=== PATIENT | female | born 1960 | race Caucasian/White ===

== ENCOUNTER 2017-08-19 18:57 | Emergency (ER) | payer OTHER | END 2017-08-19 20:41 | disposition home or self-care (01) | LOC: FTE 18:57 | DX: H92.01 Otalgia, right ear (principal) | CPT/HCPCS: 99283; Z7502 ==

== ENCOUNTER 2017-11-12 12:30 | Emergency (ER) | payer OTHER ==
[2017-11-12 14:08] LABS: ANION GAP 12 (8-16); BLOOD UREA NITROGEN 10 mg/dl (7-20); CALCIUM 9.4 mg/dl (8.4-10.2); CARBON DIOXIDE 28 mmol/L (21-31); CHLORIDE 105 mmol/L (97-110); CREATININE 0.48 mg/dl (0.44-1.00); GLUCOSE 117 mg/dl (70-220); POTASSIUM 4.2 mmol/L (3.5-5.1); SODIUM 141 mmol/L (135-144)
[2017-11-12] MEDS: SOD CHLORIDE 0.9% 100 ML (15:18)
[2017-11-12] MEDS: IOHEXOL 100 ML (15:18)
== END 2017-11-12 17:03 | disposition home or self-care (01) ==
LOC: E/R 12:30
DX: H93.12 Tinnitus, left ear (principal); R07.9 Chest pain, unspecified
CPT/HCPCS: 70498; 80048; 93005; 99285-25

== ENCOUNTER 2018-08-27 18:54 | Emergency (ER) | payer OTHER ==
[2018-08-27] MEDS: LORAZEPAM 0.5 MG TAB PO (20:47)
== END 2018-08-27 20:56 | disposition home or self-care (01) ==
LOC: E/R 18:54
DX: H93.12 Tinnitus, left ear (principal); F41.0 Panic disorder [episodic paroxysmal anxiety]; I10 Essential (primary) hypertension
CPT/HCPCS: 93005; 99283-25